=== PATIENT | female | born 1945 | race Caucasian/White ===

== ENCOUNTER → 2016-09-28 | Outpatient (CLI) | payer MEDICARE, OTHER ==
[~2016-09-28] MED LIST: ACET-783 PO; CHOL200026 PO; CITA20TA9 PO; IBUP200C62 PO; IOHEXOL 300 MG/ML 100ml INJECTION ONE; LEVO88TA41 PO; LUTE6CAP6 PO; MULT-806 PO; NORMAL SALINE 100 ML ONE; PROP28DR BOTH EYES; SALINE FLUSH 10ml SYRINGE ONE; SENN-125 PO; [UNRECOGNIZED DRUG - CODE] PO
--- NOTE | 2016-09-28 13:30 | DI ---
Indication: ITS.REASON: R31.9 HEMATURIA PROCEDURE: CT RENAL W/WO CONTRAST: Encounter: Initial Comparison: None Technique: Axial CT images were performed through the abdomen and pelvis before and after the administration of intravenous contrast. Delayed postcontrast images were also performed. Coronal and sagittal 2-dimensional reformats. Automated Exposure Control and Iterative Reconstruction dose reducing techniques were utilized. Contrast: Omnipaque 300 89 mL Findings: The lung bases are grossly clear. Noncontrast images show no evidence of renal or ureteral stone disease. Pelvis is partially obscured by metallic artifact from a right hip replacement. Postcontrast images show normal enhancement of the liver. No bile duct dilatation. The gallbladder, spleen, pancreas and adrenal glands are within normal limits. Small hiatal hernia. The right kidney is normal. Fat-containing lesion in the medial superior aspect of the left kidney consistent with angiomyolipoma measuring 1.1 cm in maximal diameter on coronal image #35. No enhancing renal mass. No abdominal or pelvic lymphadenopathy. The bladder shows no obvious wall thickening or mass. Again evaluation is limited by metallic streak artifact. No free fluid. No evidence of a bowel obstruction. The appendix is normal. Bone windows show degenerative and postoperative changes in the lumbar spine with scoliosis. Delayed postcontrast images show symmetric excretion of contrast by both renal collecting systems. No focal filling defect or mass identified. The ureters are normal in course and caliber. Partially opacified urinary bladder is grossly normal. Impression: 1. Negative exam. No clear etiology for the patient's hematuria. 2. Small left renal angiomyolipoma. .
== END ==
LOC: IMA 12:20
PROVIDERS: ATTEND Specialist
DX: R31.9 Hematuria, unspecified (principal); D17.71 Benign lipomatous neoplasm of kidney
CPT/HCPCS: 74178; J7050; Q9967